=== PATIENT | female | born 1940 | race African-American/Black ===

== ENCOUNTER → 2017-04-15 | Day surgery (SDC) | payer MEDICARE ==
[~2017-04-15] MED LIST: COREG12.5 M1; FERRO-TIME325 MG; HYDRALAZINE HCL25 MG PO; LANOXIN125 MCG PO; TRAVATAN Z5 ML OU
--- NOTE | ~2017-04-15 | OR ---
Unit #: [id number] #: [id number] Patient: NATHANIEL MARTINEZ [id number] [address] [address] [id number] O MR#: [id number] NAME: NATHANIEL MARTINEZ. ROOM: Date of Procedure: 04/15/2017 Admission Date: 04/15/2017 Surgeon: Tim Perry M.D. : 1940 Attending Physician: Tim Perry M.D. Primary Care Physician: Va Tello OPERATIVE REPORT PRIMARY CARE PHYSICIAN PREOPERATIVE DIAGNOSIS Iron-deficiency anemia. PROCEDURES PERFORMED Upper gastrointestinal endoscopy as well as colonoscopy up to cecum. POSTOPERATIVE DIAGNOSES For upper endoscopy: Completely normal examination up to third part of duodenum. For colonoscopy: The patient had extensive villegas-diverticulosis throughout the entire colon. Otherwise, examination was normal up to cecum. The quality of the prep was excellent. RECOMMENDATIONS The patient will be started on ferrous sulfate 325 mg p.o. once a day. She will be followed up in the office in 3 months' time. SEDATION USED MAC. DESCRIPTION OF PROCEDURE Following detailed explanation of the potential risks and complications of upper endoscopy and a colonoscopy, namely perforation, bleeding, and complications related to sedation, the patient was brought to GI lab and laid in the left lateral decubitus position. Lubricated tip of the Olympus video upper endoscope was passed through the bite block into the proximal esophagus under direct vision. The entire esophageal mucosa was examined and appeared normal. Z-line was nicely demarcated, there being no esophagitis or hiatus hernia. The scope was then advanced into the gastric cavity and the latter was insufflated. Mucosa of the fundus, body, and antrum was examined and appeared unremarkable. Pylorus was intubated with visualization of the normal duodenal bulb and second and third part of the duodenum. Upon withdrawal and retroflexion; incisura, cardia, and greater curve was examined and no additional findings were noted. The scope was then withdrawn in the distal esophagus. The entire esophageal mucosa was examined all the way up to pharynx. No additional findings were noted. Unit #: [id number] #: [id number] Patient: NATHANIEL MARTINEZ The examination table was then turned by 180 degrees and the patient positioned for a colonoscopy. A digital rectal examination was performed, which was normal. Lubricated tip of the Olympus video colonoscope was inserted through the anus and advanced under direct vision. The scope was advanced past rectosigmoid into descending colon. Extensive multiple medium-sized diverticula were seen in this area. The scope tip was then navigated all the way up to cecum with visualization of ileocecal valve and the appendiceal orifice. Preparation was excellent with good visualization and photodocumentation was obtained. Successive segments of the colonic mucosa were examined upon withdrawal and the patient was noted to have extensive villegas-diverticulosis; however, no other abnormalities were found. There were no polyps or angiodysplasias and no internal hemorrhoids were noted at the anal verge. The scope was then withdrawn and the patient returned to the recovery area. She tolerated the procedure without any postprocedure complications. Dictated by... Oliver Chung/augustus TD: 04/15/2017 11:01 JOB #: [id number] OPERATIVE REPORT Page 1 of 1 X Tim Perry MD X PROCEDURE OPERATIVE NOTE
== END | disposition home or self-care (01) ==
LOC: COPS 06:09
DX: D50.9 Iron deficiency anemia, unspecified (principal); K57.30 Diverticulosis of large intestine without perforation or abscess without bleeding; I50.9 Heart failure, unspecified; Z87.891 Personal history of nicotine dependence; Z98.42 Cataract extraction status, left eye; Z95.0 Presence of cardiac pacemaker; Z79.899 Other long term (current) drug therapy